=== PATIENT | male | born 1960 | race Caucasian/White ===

== ENCOUNTER → 2019-06-03 | Outpatient (CLI) | payer OTHER ==
[~2019-06-03] MED LIST: FISH OIL 1,0001 EAC7 PO; FLEXERIL PO; LORATIDINE 10 M10 M1 PO; MULTI VITAMIN1 EACH PO; MUSCLE RELAXER; NORCO 5-325 TA1 EACH PO; SKELAXIN; SKELAXIN 800 M800 M1 PO; VICODIN; VITAMIN B-1100 M1 PO; VITAMIN B-150 M1 PO; XANAX 0.25 MG0.25 MG PO; XANAX 0.5 MG0.5 M1 PO
== END ==
LOC: RAD 10:58
DX: M43.12 Spondylolisthesis, cervical region (principal); M50.122 Cervical disc disorder at C5-C6 level with radiculopathy; M12.88 Other specific arthropathies, not elsewhere classified, other specified site; M48.02 Spinal stenosis, cervical region; I65.21 Occlusion and stenosis of right carotid artery

== ENCOUNTER → 2019-06-22 | Outpatient (CLI) | payer OTHER | LOC: ULTRA 06-17 08:59 → NUC 09:18 | DX: I65.21 Occlusion and stenosis of right carotid artery (principal); Z82.62 Family history of osteoporosis ==